=== PATIENT | female | born 1985 | race Caucasian/White ===

== ENCOUNTER 2016-07-22 08:37 | Emergency (ER) | payer SELFPAY ==
[~2016-07-22] VITALS: Ht 170.2 cm; Wt 63.5 kg
[2016-07-22 09:07] LABS: BILIRUBIN,URINE NEGATIVE (NEG); GLUCOSE,URINE NEGATIVE (NEG); NITRITE,URINE NEGATIVE (NEG); PH,URINE 7.5; PROTEIN,URINE NEGATIVE (NEG-TRACE); UROBILINOGEN,URINE 0.2 mg/dL (0.2 mg/dL)
[2016-07-22 09:08] LABS: BASO # 0.1 x10^3/uL (0.0-0.2); BASO % 0 % (0-3); EOS % 0 % (0-3); HEMATOCRIT 39.4 % (36.0-47.0); HEMOGLOBIN 13.1 g/dL (12.0-15.5); LYMPH # 1.6 x10^3/uL (1.0-4.8); LYMPH % 13 % (24-48); MEAN CORPUSCULAR HEMOGLOBIN 30 pg (25-35); MEAN CORPUSCULAR HGB CONC 33 g/dL (31-37); MEAN CORPUSCULAR VOLUME 90 fL (79-100); MONO % 9 % (0-9); NEUT % 77 % (31-73); PLATELET COUNT 163 x10^3/uL (140-400); RED BLOOD COUNT 4.38 x10^6/uL (3.50-5.40); RED CELL DISTRIBUTION WIDTH 13.4 % (11.5-14.5)
[2016-07-22] MEDS ORDERED: IV NORMAL SALINE 1000ML BAG 1,000 ML IV ONE (09:15)
[2016-07-22] MEDS ORDERED: MORPHINE SULFATE 10 MG/ML VIAL. IV ONE (09:15)
[2016-07-22] MEDS ORDERED: ONDANSETRON PF 4 MG/2 ML VIAL. IV ONE (09:15)
[2016-07-22 09:16] LABS: CALCIUM 8.9 mg/dL (8.5-10.1); CREATININE 0.9 mg/dL (0.6-1.0); GFR 72.6; POTASSIUM 3.6 mmol/L (3.5-5.1)
[2016-07-22 09:16] LABS: BACTERIA,URINE MODERATE /HPF (0-FEW); RBC,URINE 0 /HPF (0-2); SQUAMOUS EPITHELIAL CELL,UR MOD /LPF; WBC,URINE OCC /HPF (0-4)
[2016-07-22 09:22] LABS: ALBUMIN/GLOBULIN RATIO 1.2 (1.0-1.7); MAGNESIUM 1.7 mg/dL (1.8-2.4); TOTAL BILIRUBIN 0.4 mg/dL (0.2-1.0); TOTAL PROTEIN 7.3 g/dL (6.4-8.2)
--- NOTE | 2016-07-22 09:29 | PHYS DOC ---
Past Medical History Past Medical History: Other Additional Past Medical Histor: GLUTEN INTOLERANCE Past Surgical History: Appendectomy Alcohol Use: Occasionally Drug Use: None Adult General Chief Complaint Chief Complaint: ABDOMINAL PAIN HPI HPI Patient is a 31 year old female presenting to the emergency department for evaluation of abdominal pain that has been going on since yesterday evening. She says it is in her diffuse lower abdomen sharp and burning in nature with no radiation and is a persistent pain. She says that it causes her some nausea but no vomiting diarrhea constipation dysuria hematuria or vaginal discharge. She is currently on her period. She says that she has had an appendectomy but no other abdominal surgeries. She is in no obvious distress with normal vital signs. Review of Systems Review of Systems Constitutional: Denies fever or chills [] Eyes: Denies change in visual acuity, redness, or eye pain [] HENT: Denies nasal congestion or sore throat [] Respiratory: Denies cough or shortness of breath [] Cardiovascular: No additional information not addressed in HPI [] GI: + abdominal pain, nausea. No vomiting, bloody stools or diarrhea [] : Denies dysuria or hematuria [] Musculoskeletal: Denies back pain or joint pain [] Integument: Denies rash or skin lesions [] Neurologic: Denies headache, focal weakness or sensory changes [] Current Medications Current Medications Current Medications Medications (Trade) Dose Ordered Sig/Ahmet Start Time Stop Time Status Last Admin Dose Admin Info (Do NOT chart on this entry -- for MONITORING) 1 each PRN DAILY PRN 07/22/16 09:45 07/24/16 09:44 Iohexol (Omnipaque 300 Mg/ml) 75 ml 1X ONCE 07/22/16 09:45 07/22/16 09:46 DC 07/22/16 10:02 75 ML Morphine Sulfate 5 mg 1X ONCE 07/22/16 09:15 07/22/16 09:16 DC 07/22/16 09:10 5 MG Ondansetron HCl (Zofran) 8 mg 1X ONCE 07/22/16 09:15 07/22/16 09:16 DC 07/22/16 09:09 8 MG Sodium Chloride 1,000 ml @ 1,000 mls/hr 1X ONCE 07/22/16 09:15 07/22/16 10:14 DC 07/22/16 09:09 1,000 MLS/HR Allergies Allergies Allergies Coded Allergies Type Severity Reaction Last Updated Verified No Known Drug Allergies 07/22/16 No Physical Exam Physical Exam Constitutional: Well developed, well nourished, no acute distress, non-toxic appearance. [] HENT: Normocephalic, atraumatic, bilateral external ears normal, oropharynx moist, no oral exudates, nose normal. [] Eyes: PERRLA, EOMI, conjunctiva normal, no discharge. [] Neck: Normal range of motion, no tenderness, supple, no stridor. [] Cardiovascular:Heart rate regular rhythm, no murmur [] Lungs & Thorax: Bilateral breath sounds clear to auscultation [] Abdomen: Bowel sounds normal, soft, + diffuse lower abdominal tenderness, no rebound or guarding, no masses, no pulsatile masses. [] Skin: Warm, dry, no erythema, no rash. [] Back: No tenderness, no CVA tenderness. [] Extremities: No tenderness, no cyanosis, no clubbing, ROM intact, no edema. [] Neurologic: Alert and oriented X 3, normal motor function, normal sensory function, no focal deficits noted. [] Current Patient Data Vital Signs Vital Signs Date Time Temp Pulse Resp B/P (MAP) Pulse Ox O2 Delivery O2 Flow Rate FiO2 07/22/16 08:45 97.9 80 20 126/69 (88) 100 Room Air 97.9 Lab Values Laboratory Tests Test 07/22/16 08:04 07/22/16 08:41 07/22/16 09:00 POC Urine HCG, Qualitative Hcg negative (Negative) Urine Collection Type Void Urine Color Yellow Urine Clarity Clear Urine pH 7.5 Urine Specific [place] 1.020 Urine Protein Negative mg/dL (NEG-TRACE) Urine Glucose (UA) Negative mg/dL (NEG) Urine Ketones (Stick) Negative mg/dL (NEG) Urine Blood Negative (NEG) Urine Nitrite Negative (NEG) Urine Bilirubin Negative (NEG) Urine Urobilinogen Dipstick 0.2 mg/dL (0.2 mg/dL) Urine Leukocyte Esterase Negative (NEG) Urine RBC 0 /HPF (0-2) Urine WBC Occ /HPF (0-4) Urine Squamous Epithelial Cells Mod /LPF Urine Bacteria Moderate /HPF (0-FEW) Urine Mucus Marked /LPF White Blood Count 12.0 x10^3/uL (4.0-11.0) H Red Blood Count 4.38 x10^6/uL (3.50-5.40) Hemoglobin 13.1 g/dL (12.0-15.5) Hematocrit 39.4 % (36.0-47.0) Mean Corpuscular Volume 90 fL (79-100) Mean Corpuscular Hemoglobin 30 pg (25-35) Mean Corpuscular Hemoglobin Concent 33 g/dL (31-37) Red Cell Distribution Width 13.4 % (11.5-14.5) Platelet Count 163 x10^3/uL (140-400) Neutrophils (%) (Auto) 77 % (31-73) H Lymphocytes (%) (Auto) 13 % (24-48) L Monocytes (%) (Auto) 9 % (0-9) Eosinophils (%) (Auto) 0 % (0-3) Basophils (%) (Auto) 0 % (0-3) Neutrophils # (Auto) 9.3 x10^3uL (1.8-7.7) H Lymphocytes # (Auto) 1.6 x10^3/uL (1.0-4.8) Monocytes # (Auto) 1.0 x10^3/uL (0.0-1.1) Eosinophils # (Auto) 0.1 x10^3/uL (0.0-0.7) Basophils # (Auto) 0.1 x10^3/uL (0.0-0.2) Sodium Level 145 mmol/L (136-145) Potassium Level 3.6 mmol/L (3.5-5.1) Chloride Level 108 mmol/L (98-107) H Carbon Dioxide Level 28 mmol/L (21-32) Anion Gap 9 (6-14) Blood Urea Nitrogen 14 mg/dL (7-20) Creatinine 0.9 mg/dL (0.6-1.0) Estimated GFR (Cockcroft-Gault) 72.6 BUN/Creatinine Ratio 16 (6-20) Glucose Level 79 mg/dL (70-99) Calcium Level 8.9 mg/dL (8.5-10.1) Magnesium Level 1.7 mg/dL (1.8-2.4) L Total Bilirubin 0.4 mg/dL (0.2-1.0) Aspartate Amino Transferase (AST) 19 U/L (15-37) Alanine Aminotransferase (ALT) 18 U/L (14-59) Alkaline Phosphatase 37 U/L (46-116) L Total Protein 7.3 g/dL (6.4-8.2) Albumin 4.0 g/dL (3.4-5.0) Albumin/Globulin Ratio 1.2 (1.0-1.7) Lipase 131 U/L (73-393) Laboratory Tests 07/22/16 09:00 Laboratory Tests 07/22/16 09:00 EKG EKG [] Radiology/Procedures Radiology/Procedures Indication: Mid abdominal pain. Axial imaging through the abdomen and pelvis was performed after the administration of intravenous contrast. No prior studies are available for comparison. The lung bases are clear. The liver and gallbladder are unremarkable. The pancreas and spleen are unremarkable. No adrenal mass is identified. The kidneys are unremarkable. Mild nonspecific fluid-filled small bowel loops in the lower abdomen and pelvis are noted. No definite transition point is identified. The colon is decompressed. There is no free fluid or fluid collection. No inflammatory process is seen. The bladder, uterus and ovaries are unremarkable. Impression: Mild nonspecific fluid-filled small bowel, perhaps owing to enteritis. Study is otherwise unremarkable. DICTATED and SIGNED BY: SOFIE SHAFFER MD DATE: 07/22/16 1016 Course & Med Decision Making Course & Med Decision Making Will check labs CT treat symptoms and reassess. Patient's labs show mild leukocytosis however her CT and urine are completely normal. Her repeat abdominal exam is benign and she is feeling better with improved pain and she is able to tolerate fluids by mouth with no difficulty. Given patient appears well with normal vital signs benign physical exam and workup she'll be discharged with supportive treatment and told to follow with primary care provider and/or GI physician and come back to the ER sooner with any worsening pain fevers vomiting or other general concerns. Dragon Disclaimer Dragon Disclaimer This electronic medical record was generated, in whole or in part, using a voice recognition dictation system. Departure Departure Impression: Primary Impression: Abdominal pain Additional Impressions: Nausea alone Leukocytosis Disposition: HOME, SELF-CARE Condition: GOOD Referrals: FABIO MOYA MD Patient Instructions: Abdominal Pain (Nonspecific) Additional Instructions: Drink plenty of fluids including water and Gatorade. Once he started feeling better he can eat soft non-irritating foods. Scripts Omeprazole Magnesium (PRILOSEC OTC) 20 Mg Tablet. 1 TAB PO DAILY, #30 TAB 3 Refills Prov: MARIELA DOSS DO 07/22/16 Ondansetron (ZOFRAN ODT) 4 Mg Tab.rapdis 4 MG PO BID Y for NAUSEA/VOMITING, #10 TAB Prov: MARIELA DOSS DO 07/22/16 Hydrocodone/Apap 5-325 (NORCO 5-325 TABLET) 1 Each Tablet 1 TAB PO PRN Q6HRS Y for PAIN, #14 TAB 0 Refills Prov: MARIELA DOSS DO 07/22/16 Problem Qualifiers Primary Impression: Abdominal pain Abdominal location: lower abdomen, unspecified Qualified Codes: R10.30 - Lower abdominal pain, unspecified MARIELA DOSS DO Jul 22, 2016 09:29
[2016-07-22] MEDS ORDERED: IOHEXOL 300 MG/ML 75 ML VIAL IV ONE (09:45)
[2016-07-22] MEDS ORDERED: CONTRAST GIVEN MC PRN (09:45)
--- NOTE | 2016-07-22 09:45 | ACF ---
Admission Forms Criteria ABDOMINAL PAIN Clinical Indications for Admission to Inpatient Care (Place 'X' for any and all applicable criteria): Admission is indicated for ANY ONE of the following(1)(2)(3)(4)(5): [ ]I. Inpatient admission required rather than observation care (Also use Abdominal Pain: Observation Care, as appropriate) because of ANY ONE of the following: [ ]a) Severe pain requiring acute inpatient management [ ]b) Identification of etiology/finding that requires inpatient care (eg, aortic dissection, free air) [ ]c) Absent bowel sounds with complete ileus(6) [ ]d) Suspected toxic megacolon [ ]e) Severe electrolyte abnormalities requiring inpatient care [ ]f) High fever or infection requiring inpatient admission as indicated by ANY ONE of following(7)(8): [ ] i) Appropriate outpatient or observational care antimicrobial treatment unavailable, not effective, or not feasible [ ] ii) Documented bacteremia [ ] iii) Temperature > 104.9 degrees F (oral) [ ] iv) T >103.1 F (oral) or < 96.8 F(rectal) that does not respond to all emergency treatment measures [ ]g) Signs of intestinal obstruction [B] [ ]h) Hemodynamic instability [ ]i) IV fluid to replace significant ongoing losses (greater than 3 L/m2 per day) (12)(13) [ ]j) Percutaneous or open drainage (eg, abscess, biliary tract ) procedures [ ]k) Parenteral nutrition regimen that must be implemented on inpatient basis [ ]l) Other condition,treatment or monitoring requiring inpatient admission. [ ]II. Peritoneal signs present [ ]III. Surgery needed that cannot be performed on an ambulatory basis. [ ]IV. Evaluation requires patient to not eat or drink for extended period ( eg, more than 24 hours). [ ]V. Contraindications and/or Inappropriate clinical situations for Observational Care in patients with abdominal pain, when ANY ONE of the following is required: [ ]a) Thorough evaluation is required to prevent catastrophic events due to delays in diagnosing (e.g.Mesenteric ischemia) 1,3 [ ]b) Patient with severe pathology or with chronic symptoms unlikely to improve in the ED stay (3) [ ]. General contraindications and/or Inappropriate clinical situations for Observational Care in patients with abdominal pain, when ANY ONE of the following is required: [ ]a) Prediction of prolongation of LOS based on ANY ONE of the following may be considered as a contraindication for observational care 2, 3, 4, 5, 6, 7, 8, 9, 10, 11 [ ]i) Age > 65 yrs. [ ]ii) Patient arriving by ambulance [ ]iii) Patient with high acuity [ ]iv) Patient requiring vital sign monitoring [ ]v) Patient on IV medication [ ]b) Systolic blood pressures 180mmHg 3,12 [ ]c) Patient with altered mental status including delirium and other alteration of consciousness, (3) [ ]d) Patient whose discharge disposition will be to a retirement home or rehabilitation home should not be managed in Emergency Department Observation Unit. CMS rule requires 3 days hospital stay before such placement.3,13 [ ]e) Patient with failure to thrive due to broad array of etiologies 3,16,17 [ ]f) Inability to ambulate 3,14 Extended stay beyond goal length of stay may be needed for(2)(3): [ ]a) Persistent abdominal pain with suspected intra-abdominal process [ ]b) Diagnosed condition requiring continued stay (e.g., pancreatitis, complicated diverticulitis) [ ]c) Surgery (e.g., colectomy) The original [facility] content created by [employer] has been revised. The portions of the content which have been revised are identified through the use of italic text or in bold, and [facility] has neither reviewed nor approved the modified material.All other unmodified content is copyright [employer]. Please see references footnoted in the original [facility] edition 2016 LEONARDO GEE Jul 22, 2016 09:45
--- NOTE | 2016-07-22 10:20 | RAD ---
Indication: Mid abdominal pain. Axial imaging through the abdomen and pelvis was performed after the administration of intravenous contrast. No prior studies are available for comparison. The lung bases are clear. The liver and gallbladder are unremarkable. The pancreas and spleen are unremarkable. No adrenal mass is identified. The kidneys are unremarkable. Mild nonspecific fluid-filled small bowel loops in the lower abdomen and pelvis are noted. No definite transition point is identified. The colon is decompressed. There is no free fluid or fluid collection. No inflammatory process is seen. The bladder, uterus and ovaries are unremarkable. Impression: Mild nonspecific fluid-filled small bowel, perhaps owing to enteritis. Study is otherwise unremarkable.
[2016-07-22 10:30] VITALS: BP 105/62
[2016-07-22] MEDS ORDERED: OMEP20TA63 PO (10:37)
[2016-07-22] MEDS ORDERED: HYDR-971 PO (10:37)
[2016-07-22] MEDS ORDERED: ONDA4TAB10 PO (10:37)
[2016-07-22] MEDS ORDERED: KETOROLAC TROMETHAMINE 30 MG/ML INJ. IV ONE (10:45)
--- NOTE | 2016-07-24 16:51 | VNOTE ---
CALL BACK NOTE CALL BACK Microbiology 07/22/16 Urine Culture - Final, Complete 07/22/16 Urine Culture Result 1 (CASTILLO) - Final, Complete 07/22/16 Urine Culture Result 2 ([facility]O) - Final, Complete attempted to contact patient in regards to urine positive for group B strep. Phone message states they phone is not set up to accept messages. Certified letter will be sent to patient, DAGOSHARYNRUTHTRACY Vicente APRN Jul 24, 2016 16:51
== END 2016-07-22 10:50 | disposition home or self-care (01) ==
LOC: ER 08:37
DX: R10.84 Generalized abdominal pain (principal); R11.0 Nausea; Z90.49 Acquired absence of other specified parts of digestive tract; D72.829 Elevated white blood cell count, unspecified
CPT/HCPCS: 36415; 74177; 80053; 81001; 81025; 83690; 83735; 85027; 87086; 96361; 96374; 96375; 99285; J1885; J2270; J2405; J7030; Q9967

== ENCOUNTER 2018-09-29 18:04 | Emergency (ER) | payer SELFPAY ==
[~2018-09-29] VITALS: Ht 165.1 cm; Wt 63.5 kg
[~2018-09-29 18:04] MED LIST: HYDR-3164 PO; OMEP20TA63 PO; ONDA4TAB10 PO
[2018-09-29] MEDS ORDERED: KETOROLAC 60 MG/2 ML VIAL. IM ONE (18:45)
--- NOTE | 2018-09-29 18:59 | PHYS DOC ---
Past Medical History Past Medical History: Other Additional Past Medical Histor: GLUTEN INTOLERANCE Past Surgical History: Appendectomy Alcohol Use: Occasionally Drug Use: None Adult General Chief Complaint Chief Complaint: MENSTRUAL PAIN/CRAMPS [facility] HPI Patient is a 33 year old female who brought in by EMS because of syncope. Patient states she started her regular menstruation today as her usual menstruation. Patient states she had severe cramping lower abdominal pain while she was at [facility] today and went to the bathroom and had several episodes of vomiting with episodes of syncope between episodes of vomiting. Patient denies focal neuro deficit , chest pain, headache, , diarrhea and constipation, urinary symptom. Patient denies history of syncope or cramping abdominal pain during her menstruation. Review of Systems Review of Systems Constitutional: Denies fever or chills [] Eyes: Denies change in visual acuity, redness, or eye pain [] HENT: Denies nasal congestion or sore throat [] Respiratory: Denies cough or shortness of breath [] Cardiovascular: No additional information not addressed in HPI [] GI: Reports abdominal pain, nausea, vomiting, denies bloody stools or diarrhea [] : Denies dysuria or hematuria [] Musculoskeletal: Denies back pain or joint pain [] Integument: Denies rash or skin lesions [] Neurologic: Denies headache, focal weakness or sensory changes [] Endocrine: Denies polyuria or polydipsia [] All other systems were reviewed and found to be within normal limits, except as documented in this note. Current Medications Current Medications Current Medications Medications (Trade) Dose Ordered Sig/Ahmet Start Time Stop Time Status Last Admin Dose Admin Ketorolac Tromethamine (Toradol Im) 60 mg 1X ONCE 09/29/18 18:45 09/29/18 18:46 DC 09/29/18 19:16 60 MG Allergies Allergies Allergies Coded Allergies Type Severity Reaction Last Updated Verified No Known Drug Allergies 07/22/16 No Physical Exam Physical Exam Constitutional: Well developed, well nourished, mild distress, non-toxic appearance. [] HENT: Normocephalic, atraumatic, oropharynx moist,. Eyes: PERRLA, EOMI, conjunctiva normal, no discharge. [] Neck: Normal range of motion, no tenderness, supple, no stridor. [] Cardiovascular:Heart rate regular rhythm, no murmur [] Lungs & Thorax: Bilateral breath sounds clear to auscultation [] Abdomen: Bowel sounds normal, soft, no tenderness, no masses, no pulsatile masses. [] Skin: Warm, dry, no erythema, no rash. [] Back: No tenderness, no CVA tenderness. [] Extremities: No tenderness, no cyanosis, no clubbing, ROM intact, no edema. [] Neurologic: Alert and oriented X 3, normal motor function, normal sensory function, no focal deficits noted. [] Psychologic: Affect anxious, judgement normal, mood normal. [] EKG EKG [] Radiology/Procedures Radiology/Procedures [] Course & Med Decision Making Course & Med Decision Making Evaluation of patient in ER showed 33-year-old female patient with syncope after vomiting and lower abdominal cramping pain. Patient did not want to have evaluation of syncope. patient treated with toradol and felt better. Plan discharge patient home with diagnose of vasovagal syncope. Dragon Disclaimer Dragon Disclaimer This electronic medical record was generated, in whole or in part, using a voice recognition dictation system. Departure Departure Impression: Primary Impression: Vasovagal syncope Additional Impressions: Crampy pain associated with menses Nausea and vomiting Disposition: HOME, SELF-CARE (19. He) Condition: IMPROVED Referrals: NON,STAFF (PCP) Patient Instructions: Dysmenorrhea, Nausea and Vomiting, Syncope Additional Instructions: Drink plenty of liquids Follow-up with your primary care physician in 3-5 days Return to ER if not getting better Scripts Ondansetron Hcl (ZOFRAN) 4 Mg Tablet 1 TAB PO PRN Q6-8HRS for nausea, #12 TAB Prov: TRINY ANDRADE MD 09/29/18 Naproxen (NAPROSYN) 500 Mg Tablet 1 TAB PO BID for pain, #20 TAB Prov: TRINY ANDRADE MD 09/29/18 Problem Qualifiers Additional Impressions: Nausea and vomiting Vomiting type: unspecified Vomiting Intractability: unspecified Qualified Codes: R11.2 - Nausea with vomiting, unspecified TRINY ANDRADE MD Sep 29, 2018 18:59
[2018-09-29 19:30] VITALS: BP 100/64
[2018-09-29] MEDS ORDERED: ONDA4TAB7 PO (19:48)
[2018-09-29] MEDS ORDERED: NAPR-683 PO (19:48)
== END 2018-09-29 20:15 | disposition home or self-care (01) ==
LOC: ER 18:04
DX: R55 Syncope and collapse (principal); R11.2 Nausea with vomiting, unspecified; N94.6 Dysmenorrhea, unspecified; R10.30 Lower abdominal pain, unspecified; Z90.89 Acquired absence of other organs
CPT/HCPCS: 96372; 99283; J1885